=== PATIENT | female | born 1990 | race Caucasian/White ===

== ENCOUNTER 2017-05-06 12:35 | Emergency (ER) | payer MEDICAID ==
[~2017-05-06 12:35] MED LIST: CYCLOBENZAPRINE10 MG PO; FLAGYL500 MG PO; MILK OF MAGNESI30 ML PO; PNV; THORAZINE25 MG PO
[2017-05-06 13:16] LABS: APPEARANCE HAZY (CLEAR); BACTERIA MANY /hpf (NONE SEEN); BILIRUBIN NEGATIVE (NEGATIVE); COLOR YELLOW (YELLOW); GLUCOSE NEGATIVE (NEGATIVE); KETONE NEGATIVE (NEGATIVE); NITRITE NEGATIVE (NEGATIVE); PROTEIN NEGATIVE (NEGATIVE); SPECIFIC GRAVITY 1.015 (1.005-1.020); UROBILINOGEN NORMAL (NORMAL); WHITE CELLS - URINE 0-5 /hpf (0-5)
[2017-05-06 14:10] LABS: BASOPHILS 0.2 % (0-2); EOSINOPHILS 1.1 % (0-7); HEMATOCRIT 44.8 % (36.0-48.0); HEMOGLOBIN 14.5 g/dL (12-16); IMMATURE GRANULOCYTES 0.3 % (0-5); LYMPHOCYTES 21.8 % (15-50); MCH 27.9 pg (26.0-34.0); MCHC 32.4 g/dL (31.0-37.0); MCV 86.3 fL (80.0-100.0); MEAN PLATELET VOLUME 9.4 fL (7.4-10.4); MONOCYTES 3.7 % (2-11); NEUTROPHILS 72.9 % (40-80); PLATELET COUNT 308 10x3/uL (130-400); RBC 5.19 10x6/uL (4.00-5.40); RDW 13.1 % (11.5-14.5); WBC 9.8 10x3/uL (4.8-10.8)
[2017-05-06 14:21] LABS: HCG SERUM NEGATIVE (NEGATIVE)
[2017-05-06 14:28] LABS: ALBUMIN 3.4 g/dL (3.4-5.0); ALKALINE PHOSPHATASE 97 U/L (46-116); ALT (SGPT) 18 U/L (10-68); BILIRUBIN - TOTAL 0.46 mg/dL (0.2-1.3); CALC OSMOLALITY 277 mosm/kg (275-300); CALCIUM 8.7 mg/dL (8.5-10.1); CARBON DIOXIDE 24.5 mmol/L (21.0-32.0); CHLORIDE - SERUM 104 mmol/L (98-107); CREATININE - SERUM 0.8 mg/dL (0.6-1.3); GLUCOSE 129 mg/dL (74-106); POTASSIUM - SERUM 3.7 mmol/L (3.5-5.1); PROTEIN - SERUM 7.6 g/dL (6.4-8.2); SODIUM 138 mmol/L (136-145); UREA NITROGEN 12 mg/dL (7-18); eGFR NON AFRICAN AMERICAN > 90 mL/min (90-120)
== END 2017-05-06 18:10 | disposition home or self-care (01) ==
LOC: D.ER 12:35
PROVIDERS: Family Medicine
DX: K59.00 Constipation, unspecified (principal); N39.0 Urinary tract infection, site not specified